=== PATIENT | female | born 1970 | race Caucasian/White ===

== ENCOUNTER 2023-04-26 16:22 | Outpatient (RCR) | payer OTHER, SELFPAY | END 2023-04-27 07:44 | disposition home or self-care (01) | LOC: RPT 16:22 | PROVIDERS: ATTENDING PHYSICIAN Family Medicine | DX: M25.571 Pain in right ankle and joints of right foot (principal) | CPT/HCPCS: 97110 ==

== ENCOUNTER → 2023-06-08 11:21 | Outpatient (REF) | payer OTHER, SELFPAY | LOC: MRI 3T 11:21 | PROVIDERS: ATTENDING PHYSICIAN Orthopaedic Surgery; FAMILY PHYSICIAN Family Medicine | DX: M25.562 Pain in left knee (principal) | CPT/HCPCS: 73721 ==

== ENCOUNTER 2023-07-25 16:29 | Outpatient (RCR) | payer OTHER, SELFPAY | END 2023-07-25 23:59 | disposition home or self-care (01) | LOC: RPT 16:29 | PROVIDERS: ATTENDING PHYSICIAN Orthopaedic Surgery; FAMILY PHYSICIAN Family Medicine | DX: M22.42 Chondromalacia patellae, left knee (principal); M25.562 Pain in left knee; Z73.6 Limitation of activities due to disability; R26.2 Difficulty in walking, not elsewhere classified; M62.81 Muscle weakness (generalized) | CPT/HCPCS: 97110; 97140; 97161; 97530 ==

== ENCOUNTER 2023-08-15 16:01 | Outpatient (RCR) | payer OTHER, SELFPAY | END 2023-08-15 23:59 | disposition home or self-care (01) | LOC: RPT 16:01 | PROVIDERS: ATTENDING PHYSICIAN Orthopaedic Surgery; FAMILY PHYSICIAN Family Medicine | DX: M22.42 Chondromalacia patellae, left knee (principal); M25.562 Pain in left knee; Z73.6 Limitation of activities due to disability; R26.2 Difficulty in walking, not elsewhere classified; M62.81 Muscle weakness (generalized) | CPT/HCPCS: 97110; 97112; 97140; 97530 ==

== ENCOUNTER 2023-09-13 16:47 | Outpatient (RCR) | payer OTHER, SELFPAY | END 2023-09-13 23:59 | disposition home or self-care (01) | LOC: RPT 16:47 | PROVIDERS: ATTENDING PHYSICIAN Orthopaedic Surgery; FAMILY PHYSICIAN Family Medicine | DX: M22.42 Chondromalacia patellae, left knee (principal); M25.562 Pain in left knee; Z73.6 Limitation of activities due to disability | CPT/HCPCS: 97110; 97112; 97140; 97530 ==

== ENCOUNTER 2023-10-20 16:31 | Outpatient (RCR) | payer OTHER, SELFPAY | END 2023-10-21 07:33 | disposition home or self-care (01) | LOC: RPT 16:31 | PROVIDERS: ATTENDING PHYSICIAN Orthopaedic Surgery; FAMILY PHYSICIAN Family Medicine | DX: M25.562 Pain in left knee (principal); M22.42 Chondromalacia patellae, left knee; Z73.6 Limitation of activities due to disability | CPT/HCPCS: 97110; 97112; 97530 ==

== ENCOUNTER → 2024-03-06 18:39 | Outpatient (REF) | payer OTHER, SELFPAY | LOC: WDC 18:39 | PROVIDERS: ATTENDING PHYSICIAN Obstetrics & Gynecology Gynecology; FAMILY PHYSICIAN Family Medicine | DX: Z12.31 Encounter for screening mammogram for malignant neoplasm of breast (principal) | CPT/HCPCS: 77063; 77067 ==

== ENCOUNTER → 2024-07-26 09:33 | Outpatient (REF) | payer OTHER, SELFPAY | LOC: RAD 09:33 | PROVIDERS: ATTENDING PHYSICIAN Family Medicine | DX: R05.1 Acute cough (principal) | CPT/HCPCS: 71046 ==

== ENCOUNTER → 2024-09-25 06:34 | Outpatient (REF) | payer OTHER, SELFPAY | LOC: MRI 06:34 | PROVIDERS: ATTENDING PHYSICIAN Orthopaedic Surgery; FAMILY PHYSICIAN Family Medicine | DX: M25.562 Pain in left knee (principal) | CPT/HCPCS: 73721 ==

== ENCOUNTER 2024-10-22 08:57 | Outpatient (RCR) | payer OTHER, SELFPAY | END 2024-10-22 23:59 | disposition home or self-care (01) | LOC: RPT 08:57 | PROVIDERS: ATTENDING PHYSICIAN Orthopaedic Surgery; FAMILY PHYSICIAN Family Medicine | DX: M17.12 Unilateral primary osteoarthritis, left knee (principal); Z73.6 Limitation of activities due to disability; R26.89 Other abnormalities of gait and mobility; M62.81 Muscle weakness (generalized); S89.82XD Other specified injuries of left lower leg, subsequent encounter | CPT/HCPCS: 97110; 97162; 97530 ==

== ENCOUNTER 2024-11-08 07:37 | Outpatient (RCR) | payer OTHER, SELFPAY | END 2024-11-08 23:59 | disposition home or self-care (01) | LOC: RPT 07:37 | PROVIDERS: ATTENDING PHYSICIAN Orthopaedic Surgery; FAMILY PHYSICIAN Family Medicine | DX: M17.12 Unilateral primary osteoarthritis, left knee (principal); Z73.6 Limitation of activities due to disability; R26.89 Other abnormalities of gait and mobility; M62.81 Muscle weakness (generalized); S89.82XD Other specified injuries of left lower leg, subsequent encounter | CPT/HCPCS: 97110; 97530 ==

== ENCOUNTER 2024-12-03 19:33 | Emergency (ER) | payer OTHER, BC, SELFPAY ==
[2024-12-03 19:53] VITALS: BP 133/86
--- NOTE | 2024-12-03 23:03 | ED.GENMED ---
History of Present Illness
General
Chief Complaint: Head Injury
Source: patient
Time Seen by Provider: 12/03/24 20:26
History of Present Illness
History of Present Illness:
54-year-old female presents to the emergency room for evaluation of a head injury. Patient struck her head on a dumbbell rack 5 days ago. She has not felt right since then. She states she is in a fog has some nausea and headaches. She sometimes
has some nausea but has not vomited. She did not have a loss of consciousness at the time of the injury. She does not take any oral anticoagulants. She does not take any prescription medications for that matter. She denies any focal weakness
numbness or tingling.
Phy Exam
Physical Exam
Physical Exam:
General: Awake, Alert, Oriented X3. No acute distress.
Vitals: unremarkable
Head: Atraumatic
Eyes: Pupils equal, EOMI
Throat: Airway intact, no exudates
Neck: Trachea midline
Lungs: Clear and equal b/l
Heart: Regular rate, no murmurs
Abd: Soft, Nontender, No pulsatile mass
Neuro: Cranial nerves intact, muscle strength equal bilaterally
Skin: Warm, dry, no rash
Extremities: pulses equal b/l, no edema
Course
Orders/Labs/Results
Orders:
Orders
12/03/24 19:56
CT Head W/o Iv Contrast Urgent
Comment:
Reason For Exam: head injury
12/03/24 23:05
Acetaminophen [Tylenol] 1,000 mg PO NOW STA
Vital Signs
Initial and Last Documented VS:
Initial Vital Signs
Temp Pulse Resp BP Pulse Ox
97.8 F 63 16 133/86 100
12/03/24 19:53 12/03/24 19:53 12/03/24 19:53 12/03/24 19:53 12/03/24 19:53
Last Documented Vital Signs
Temp Pulse Resp BP Pulse Ox
97.6 F 69 18 118/76 100
12/03/24 23:14 12/03/24 23:14 12/03/24 23:14 12/03/24 23:14 12/03/24 23:14
MDM/Problems Addressed
Differential Diagnosis Includes:
Contusion, concussion, subdural
MDM/Problems Addressed:
CT shows no acute abnormalities. Patient's overall presentation seems most consistent with concussion. Patient stable for discharge home. Given information about concussions and ways to cope with symptoms and recurrence
*Pulse Oximetry
SaO2: 100
Oxygen Mode of Delivery: Room air
Patient hypoxic: no
*Critical Care Note
Total Time (30-74mins, 75-104mins- exclusive of procedures): Not Applicable
ED Attending Note
-
Portions of this chart may have been created with voice recognition software.� Occasional wrong word or��sound alike� substitutions may have occurred due to the inherent limitations of voice recognition software.
Discharge Plan
Departure
Patient Disposition: Home (Routine Discharge)
Date of Disposition: 12/03/24
Time of Disposition: 23:05
Patient with high blood pressure during this ER visit?: No
Condition: Good
Discharge Problem:
Head injury, Concussion
Instructions: Concussion, Adult (DC), Minor Head Injury (DC), BLOOD PRESSURE
Stand Alone Forms: Return to Work
Interventions
Interventions:
*Risk Screen - Suicide Last Done: 12/03/24 19:40
*General Assessment Last Done: 12/03/24 19:55
*Neglect/Abuse Screening Last Done: 12/03/24 23:14
*ED- Fall Risk Assessment Last Done: 12/03/24 23:14
*ED COVID-19 Vaccine History Last Done: 12/03/24 19:55
*Nursing Disposition Last Done: 12/03/24 23:19
ED- Neurological Assessment Last Done: 12/03/24 23:18
ED-Skin Assessment Last Done: 12/03/24 23:18
Discharge Date and Time
Discharge Date/Time: 12/03/24 23:21
Print Language: JAPANESE
[2024-12-03] MEDS: TYLENOL 1000 MG PO (23:11)
[2024-12-03 23:14] VITALS: BP 118/76
== END 2024-12-03 23:21 | disposition home or self-care (01) ==
LOC: EMR 19:33
PROVIDERS: EMERGENCY PHYSICIAN Emergency Medicine; FAMILY PHYSICIAN Family Medicine
DX: S06.0X0A Concussion without loss of consciousness, initial encounter (principal); W22.09XA Striking against other stationary object, initial encounter
CPT/HCPCS: 99284; 70450

== ENCOUNTER 2024-12-05 12:43 | Emergency (ER) | payer SELFPAY ==
[2024-12-05 12:45] VITALS: BP 145/90
--- NOTE | 2024-12-05 14:01 | ED.GENMED ---
History of Present Illness
General
Chief Complaint: Head Injury
Source: patient
Exam Limitations: none
Time Seen by Provider: 12/05/24 13:19
Nursing documentation reviewed up to this point in time: agreed with
History of Present Illness
History of Present Illness:
Patient is a 54-year-old female presents to the ER for evaluation. Patient was seen here 2 days ago November was diagnosed with a concussion. She is still having intermittent headaches, feels foggy .
Pt was sent initially by work [facility] to urgent care today for medical clearance and then sent here to the ER. She states [facility] needs a note stating that she needs to be followed up again with [facility] before she gets medically cleared.
She has been taking Tylenol Motrin as needed no other complaints
Phy Exam
General Physical Exam
General Presentation: no apparent distress
General age: appears stated age
General Skin: warm and dry
General Habitus: normal
General Mental: alert
General Hydration: appears well hydrated
ENT Exam
ENT Exam: EOMI and TM's normal
Eye Exam
Eye Exam: PERRL and EOMI
Eye Exam General: PERRL: bilateral and EOM intact: bilateral
Pupil Exam: Bilateral: round and reactive
Neurological Exam
Neurological Exam: alert and oriented x3
Musculoskeletal Exam
Musculoskeletal Exam: full ROM
Skin Exam
Skin Exam: normal color and warm/dry
Psychiatric Exam
Psychiatric Exam: normal mood/affect
Course
Vital Signs
Initial and Last Documented VS:
Initial Vital Signs
Temp Pulse Resp BP Pulse Ox
98.0 F 87 16 145/90 98
12/05/24 12:45 12/05/24 12:45 12/05/24 12:45 12/05/24 12:45 12/05/24 12:45
Last Documented Vital Signs
Temp Pulse Resp BP Pulse Ox
98.0 F 87 16 145/90 98
12/05/24 12:45 12/05/24 12:45 12/05/24 12:45 12/05/24 12:45 12/05/24 14:10
MDM/Problems Addressed
MDM/Problems Addressed:
Patient presenting with concussion symptoms status post concussion she was seen here previously on Tuesday 2 days ago. She is awake alert no acute distress she needed a note for extension for work clearance discussed close outpatient follow-up.
Neurologically intact.
*Pulse Oximetry
SaO2: 98
Oxygen Mode of Delivery: Room air
Patient hypoxic: no
*Critical Care Note
Total Time (30-74mins, 75-104mins- exclusive of procedures): Not Applicable
Data Reviewed
Review of Other/Old Records Reveals: Other (previous ED visit )
Source: patient
ED Attending Note
-
Portions of this chart may have been created with voice recognition software.� Occasional wrong word or��sound alike� substitutions may have occurred due to the inherent limitations of voice recognition software.
Discharge Plan
Departure
Patient Disposition: Home (Routine Discharge)
Date of Disposition: 12/05/24
Time of Disposition: 14:03
Patient with high blood pressure during this ER visit?: Yes
Condition: Fair
Covid-19: Not Applicable
Discharge Problem:
Concussion
Instructions: Concussion, Adult (DC), BLOOD PRESSURE
Referrals:
Nakia Hendrickson MD [Family Provider, Family Practice]
Stand Alone Forms: Return to Work
Activity Restrictions/Additional Instructions:
You must be evaluated by work health physician in the next several days. No work until cleared by work health physician.
Interventions
Interventions:
*Risk Screen - Suicide Last Done: 12/05/24 12:45
*Neglect/Abuse Screening Last Done: 12/05/24 12:45
*Nursing Disposition Last Done: 12/05/24 14:51
ED- Neurological Assessment Last Done: 12/05/24 13:16
ED-Skin Assessment Last Done: 12/05/24 13:16
Discharge Date and Time
Discharge Date/Time: 12/05/24 14:51
Print Language: SINHAL[place]
== END 2024-12-05 14:51 | disposition home or self-care (01) ==
LOC: EMR 12:43
PROVIDERS: EMERGENCY PHYSICIAN Emergency Medicine; FAMILY PHYSICIAN Family Medicine
DX: S06.0XAA Concussion with loss of consciousness status unknown, initial encounter (principal); X58.XXXA Exposure to other specified factors, initial encounter; R03.0 Elevated blood-pressure reading, without diagnosis of hypertension
CPT/HCPCS: 99281